=== PATIENT | male | born 1995 ===

== ENCOUNTER 2021-05-17 17:28 | Emergency (ER) | payer SELFPAY ==
[~2021-05-17] VITALS: Ht 185.4 cm; Wt 72.6 kg
[2021-05-17 22:17] VITALS: BP 132/74
== END 2021-05-17 22:28 | disposition home or self-care (01) ==
LOC: ER 17:28
DX: S62.336A Displaced fracture of neck of fifth metacarpal bone, right hand, initial encounter for closed fracture (principal); M79.89 Other specified soft tissue disorders; Z88.0 Allergy status to penicillin; W22.8XXA Striking against or struck by other objects, initial encounter; Y93.89 Activity, other specified; Y92.89 Other specified places as the place of occurrence of the external cause; Y99.8 Other external cause status
CPT/HCPCS: 29125; 73130